=== PATIENT | female | born 1980 | race Caucasian/White ===

== ENCOUNTER 2017-08-15 16:59 | Emergency (ER) | payer SELFPAY ==
[~2017-08-15] VITALS: Ht 162.6 cm; Wt 62.0 kg
[2017-08-15 17:03] VITALS: BP 102/70; PULSE 82; RESP 22; TEMP 99.9
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
--- NOTE | 2017-08-15 18:11 | RADRPT ---
EXAM DATE/TIME: 08/15/2017 17:39 [facility] COMPARISON: No previous studies available for comparison. INDICATIONS : Cough and chest burning. MEDICAL HISTORY : None. SURGICAL HISTORY : None. ENCOUNTER: Initial ACUITY: 2 days PAIN SCORE: 6/10 LOCATION: Bilateral upper chest FINDINGS: A single view of the chest demonstrates the lungs to be symmetrically aerated without evidence of mas s, infiltrate or effusion. The cardiomediastinal contours are unremarkable. Osseous structures are intact. CONCLUSION: No acute disease. Jose Raul Lackey MD on August 15, 2017 at 18:09 Board Certified Radiologist. This report was verified electronically.
[2017-08-15 18:41] VITALS: O2SAT 98
[2017-08-15] MEDS ORDERED: RESP: ALBUTEROL 2.5 MG/3 ML NEB (SCH) INH ONE (18:45)
[2017-08-15] MEDS ORDERED: PRED50 PO (19:08)
[2017-08-15] MEDS ORDERED: ALBU6.7H INH (19:08)
== END 2017-08-15 20:02 | disposition home or self-care (01) ==
LOC: NEPE 16:59
DX: J40 Bronchitis, not specified as acute or chronic (principal); F17.200 Nicotine dependence, unspecified, uncomplicated
CPT/HCPCS: 71010; 87804; 94664; 99284; J7613

== ENCOUNTER 2017-10-18 05:59 | Emergency (ER) | payer SELFPAY ==
[~2017-10-18] VITALS: Ht 157.5 cm; Wt 61.5 kg
[~2017-10-18 05:59] MED LIST: ALBU6.7H INH; PRED50 PO
[2017-10-18 06:02] VITALS: BP 134/91; PULSE 89; RESP 16; TEMP 97.9; O2SAT 99
[2017-10-18] MEDS ORDERED: MAGN100T2 PO (06:08)
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
[2017-10-18] MEDS ORDERED: HYDR-3516 PO (06:58)
[2017-10-18] MEDS ORDERED: NAPR500 PO (06:58)
[2017-10-18] MEDS ORDERED: IBUPROFEN 400 MG TAB PO ONE (07:00)
== END 2017-10-18 07:17 | disposition home or self-care (01) ==
LOC: NEPC 05:59
DX: S02.2XXA Fracture of nasal bones, initial encounter for closed fracture (principal); M54.2 Cervicalgia; F17.200 Nicotine dependence, unspecified, uncomplicated; F12.90 Cannabis use, unspecified, uncomplicated; Y04.2XXA Assault by strike against or bumped into by another person, initial encounter; Y92.481 Parking lot as the place of occurrence of the external cause
CPT/HCPCS: 70160; 99283